=== PATIENT | female | born 1965 ===

== ENCOUNTER 2019-11-04 09:19 | Emergency (ER) | payer OTHER ==
[~2019-11-04 09:19] MED LIST: Sodium Chloride 0.9% 1,000 ML IV ONE
[2019-11-04] MEDS: EPINEPHrine 1 MG/ML 30 ML MDV IVPUSH PRN ×4 (09:19→09:29)
--- NOTE | 2019-11-04 09:34 | EDM.PDOC ---
ED HPI GENERAL MEDICAL PROBLEM - General Chief Complaint: CPR in Progress Stated Complaint: unknown Time Seen by Provider: 11/04/19 09:20 Source of Information: Reports: EMS, EMS Notes Reviewed History Limitations: Reports: Other (CPR in progress) - History of Present Illness INITIAL COMMENTS - FREE TEXT/NARRATIVE: This patient presents to the ED via EMS with CPR in progress. Last known well approximately 0800. According to her sibling she is visiting from out of town and was checking her phone at 0800. Approximately 30 minutes later the sibling went outside and found her lying on the ground unresponsive. He called 911 who directed him to start CPR. EMS arrival with initiation of effective CPR and CHRISTOPHE at approximately 0840. An albuterol inhaler was found near her outside; unlabeled. Sibling states she has a hx of COPD. No other PMH available brother states that she has a hx of cancer but does not know what or when. Brother states she had an increased cough and shortness of breath but had not had a fever that they are aware of. She has been staying with her brother for the past 3 weeks "to sober up." According to the brother she has not been using alcohol or other drugs. Onset: Today, Sudden ED ROS GENERAL - Review of Systems Review Of Systems: Unable To Obtain (CPR in progress) Reason Not Obtained: CPR in progress ED EXAM, CPR - Physical Exam Exam: See Below Limited By: Unresponsive General Appearance: Obtunded Eye Exam: Bilateral Eye: Abnormal Pupil (fixed, dilated) Ears: Normal External Exam, Normal TMs Nose: Other (arrives with Maxi airway appropriately placed) Throat/Mouth: Normal Inspection, Normal Lips Head: Normocephalic, Other (abrasion and bruise to left forehead) Neck: No: Lymphadenopathy (R), Lymphadenopathy (L), Thyromegaly Respiratory Chest: Other (definitive airway in place) Cardiovascular: CPR In Progress (no pulses noted with interruption of CPR; no shockable rythmn) GI/Abdominal Exam: Distended, Rigid, Other (no bowel sounds) (Female) Exam: Deferred 0: Right Carotid, Left Carotid, Brachial Pulse (R), Brachial Pulse (L) Extremities: Normal Inspection, Mottled, Other (no peripheral pulses; extremities stiff) Neurological: Unresponsive Skin Exam: Cool, Cyanosis, Mottled, Wound/Incision (abrasion inner aspect right ankle), Other (small areas livor mortis sacrum) Course - Vital Signs Last Recorded V/S: Last Vital Signs Temp 32.2 C L 11/04/19 09:20 Pulse Resp BP Pulse Ox - Orders/Labs/Meds Orders: Medication Orders Epinephrine HCl (Adrenalin) 1 mg IVPUSH NOW PRN PRN Reason: Cardiac Arrest Last Admin: 11/04/19 09:29 Dose: 1 mg Admin: 11/04/19 09:25 Dose: 1 mg Admin: 11/04/19 09:22 Dose: 1 mg Admin: 11/04/19 09:19 Dose: 1 mg Meds: Medications Generic Name Dose Route Start Last Admin Trade Name Freq PRN Reason Stop Dose Admin Epinephrine HCl 1 mg 11/04/19 09:00 11/04/19 09:29 Adrenalin IVPUSH 1 mg NOW PRN Administration Cardiac Arrest Discontinued Medications Generic Name Dose Route Start Last Admin Trade Name Freq PRN Reason Stop Dose Admin Sodium Chloride 1,000 mls @ 999 mls/hr 11/04/19 09:19 11/04/19 09:19 Normal Saline IV 11/04/19 10:19 999 mls/hr .BOLUS ONE Administration - Re-Assessments/Exams Free Text/Narrative Re-Assessment/Exam: 11/04/19 09:37 Refer to supplemental documentation. Time of 12 Departure - Departure Time of Disposition: 09:20 Disposition: DC[facility] 05 Preliminary Cause of *Q: Cardiac Arrest Clinical Impression: Cardiac arrest - Discharge Information Referrals: PCP,None [Primary Care Provider] - Forms: ED Department Discharge Sepsis Event Note - Focused Exam Date Exam was Performed: 11/07/19 Time Exam was Performed: 12:02
== END 2019-11-04 09:20 | disposition designated cancer center or children's hospital (05) ==
LOC: LB.ED 09:19
DX: I46.9 Cardiac arrest, cause unspecified (principal)
CPT/HCPCS: 92950; 99285-25; A0425; A0429; J0171; J7030; U0002